=== PATIENT | male | born 1940 | race Caucasian/White ===

== ENCOUNTER → 2016-11-05 | Day surgery (SDC) | payer MEDICARE, BC ==
[~2016-11-05] MED LIST: BUPIVACAINE/EPINEPHRINE 0.25% PF 10 ML VIAL INFIL ONE; LACTATED RINGER'S 1000 ML INJ 1,000 ML ONE; MIDAZOLAM HCL 2 MG/2 ML VIAL ONE; PROPOFOL 200 MG/20 ML AMP IV ONE; ceFAZolin 2 GM PREMIX 50 ML ONE
--- NOTE | 2016-11-05 16:00 | TN ---
cc: AKASH RUDOLPH DATE OF SURGERY 11/05/16 PREOPERATIVE DIAGNOSIS 1. Thin melanoma right upper lateral back. 2. Dysplastic nevus epigastric abdominal skin. POSTOPERATIVE DIAGNOSIS 1. Thin melanoma right upper lateral back. 2. Dysplastic nevus epigastric abdominal skin. PROCEDURE 1. Wide excision with intermediate closure of 2.5 cm x 5 cm right upper lateral back melanoma. 2. Excision and simple closure of 1.5 cm x 3.5 cm epigastric skin dysplastic nevus. ATTENDING SURGEON Akash Rudolph MD SURGICAL APPLIANCE FITTER None. ANESTHESIA General and local anesthetic. BLOOD LOSS Less than 10 cc. COMPLICATIONS None. FINDINGS Grossly completely excised scars with 1 cm margin of melanoma and 5 mm margin on the dysplastic nevus biopsy site. INDICATIONS FOR PROCEDURE The patient is a 76-year-old male with a thin melanoma of his right upper lateral back and a dysplastic nevus on his epigastric skin. The patient was referred by his slip tender for excision. The risks, benefits, alternatives to excision for treatment of dysplastic nevus and melanoma were discussed with the patient in detail prior to the procedure and the patient agreed to undergo the procedure. PROCEDURE IN DETAIL Informed consent was obtained and the patient was taken to the operating room at [facility]. The patient was placed in the lateral decubitus position, left side down and placed under a general anesthesia with an LMA airway. The abdominal skin and epigastric area as well as the right upper back were prepped and draped in sterile fashion. Time-out was performed. The abdominal lesion was marked and excised to at least 5 mm margins. This was excised in an elliptical type fashion with 15 blade scalpel. Bovie electrocautery was used to get hemostasis and we closed this with 3-0 Vicryl deep dermal sutures followed 4-0 Monocryl and Dermabond. We then turned our attention to the patient's right upper back melanoma. We marked 1 cm excision 360 degrees around this lesion. We excised this with a 15 blade scalpel, follow by Bovie electrocautery to the subcutaneous tissue. There was no undermining needed. This was minimal tension. We closed this with 0 Vicryl deep dermal sutures followed by 3-0 Monocryl subcutaneous and 4-0 Monocryl subcuticular sutures and Dermabond was placed on the skin. Local anesthetic was instilled in both of these sites. The patient was discontinued from anesthesia, taken to the PACU in stable condition. The patient tolerated the procedure well. No apparent complications. All counts were correct. I was present and scrubbed for the entire procedure. Akash Rudolph MD AWG/ANKIT /11:15 AM /3:44 PM SHEILA
== END | disposition home or self-care (01) ==
LOC: ESDC 08:23
PROVIDERS: ATTEND Surgery
DX: C43.59 Malignant melanoma of other part of trunk (principal); D23.5 Other benign neoplasm of skin of trunk
CPT/HCPCS: 00300; 00400; 11404; 11606; 12032; 88305; J0690; J2250; J3010; J7120